=== PATIENT | female | born 1990 | race Caucasian/White ===

== ENCOUNTER 2021-08-03 17:59 | Inpatient (IN) | payer BC ==
[~2021-08-03 17:59] MED LIST: Bupivacaine 0.25% HCL 30 ML VIAL ONE; Bupivacaine HCl 0.5%/Epinephrine 1:200,000/PF 30 ml Vial ONE
[2021-08-03 19:03] VITALS: BMI 31.3
[2021-08-03] MEDS ORDERED: Misoprostol 200 MCG TAB PR PRN (19:20)
[2021-08-03] MEDS ORDERED: Diphenoxylate HCl/Atropine Tablet PO PRN (19:20)
[2021-08-03] MEDS ORDERED: Promethazine HCl 25 MG/ML VIAL IM PRN (19:20)
[2021-08-03] MEDS ORDERED: Carboprost 250 MCG/ML AMP IM PRN (19:20)
[2021-08-03] MEDS ORDERED: Lidocaine 1% (PF) 30 ML VIAL SC PRN (19:20)
[2021-08-03] MEDS ORDERED: Ibuprofen 800 MG TAB PO PRN (19:20)
[2021-08-03] MEDS ORDERED: HYDROcodone/Acetaminophen 5/325 mg Tablet PO PRN ×2 (19:20)
[2021-08-03] MEDS ORDERED: Acetaminophen 500 MG TAB PO PRN (19:20)
[2021-08-03] MEDS ORDERED: Ondansetron PF 4 MG/2 ML Vial IVP PRN (19:20)
[2021-08-03] MEDS ORDERED: hydrALAZINE 20 MG/ML VIAL SLOW IVP PRN (19:20)
[2021-08-03] MEDS ORDERED: Methylergonovine 0.2 MG/ML VIAL IM PRN (19:20)
[2021-08-03] MEDS ORDERED: Lactated Ringer's 1,000 ML IV SCH (19:30)
[2021-08-03] MEDS ORDERED: NS w/ Oxytocin 30 units 500 ML IV SCH ×2 (19:30)
[2021-08-03 19:48] LABS: Hemoglobin 10.8 g/dL (12.0-15.5); Mean Corpuscular HGB CONC 32.7 g/dL (32.0-36.0); Mean Corpuscular Hemoglobin 29.2 pg (27.0-33.0); Mean Corpuscular Volume 89.2 fl (81.6-98.3); Mean Platelet Volume 10.7 fl (7.4-10.4); Platelet Count 170 10x3/uL (150-450); RBC Distribution Width 14.3 % (11.5-14.5); White Blood Cell (WBC) Count 9.6 10x3/uL (3.5-10.5)
[2021-08-03 20:19] LABS: Hep B Surf Ag Non-Reactive S/CO (NonReactive)
[2021-08-03 20:20] LABS: Syphilis Antibody Nonreactive (Nonreactive); Syphilis Antibody Index 0.04 S/CO (<1.00 Non-Reactive)
[2021-08-03 20:22] LABS: HBSAg Index 0.15 S/CO (0-0.99)
[2021-08-03] MEDS: Butorphanol Tartrate 1 MG/ML VIAL SLOW IVP PRN (22:00)
[2021-08-03 23:25] LABS: SARS-CoV-2 NAA Rapid Test Not Detected (NotDetected)
[2021-08-04] MEDS: Butorphanol Tartrate 1 MG/ML VIAL SLOW IVP PRN (02:01)
[2021-08-04] MEDS ORDERED: Fentanyl 2 mcg/Bup 0.1% Cadd 100 ML ONE (13:07)
[2021-08-04] MEDS ORDERED: Acetaminophen 325 MG TAB PO PRN (14:56)
[2021-08-04] MEDS ORDERED: Ondansetron PF 4 MG/2 ML Vial IVP PRN (14:56)
[2021-08-04] MEDS ORDERED: ePHEDrine Sulfate 50 MG/10 ML VIAL SLOW IVP PRN (14:56)
[2021-08-04] MEDS ORDERED: diphenhydrAMINE 50 MG/ML VIAL IVP PRN (14:56)
[2021-08-04] MEDS ORDERED: Naloxone HCl 0.4 mg/ml Vial IVP PRN ×2 (14:56)
[2021-08-04] MEDS ORDERED: Lactated Ringer's 500 ML IV PRN (14:56)
[2021-08-04] MEDS ORDERED: Moisturizing Cream (Eucerin) 113 GM JAR TOP PRN (14:56)
[2021-08-04] MEDS ORDERED: Promethazine HCl 25 MG/ML VIAL IM PRN (14:56)
[2021-08-04] MEDS ORDERED: Communication Order-Pharmacy FS SCH (15:00)
[2021-08-04] MEDS ORDERED: Fentanyl 2 mcg/Bupivacaine 0.1% Cassette 100 ML EPIDURAL SCH (15:00)
[2021-08-04] MEDS ORDERED: Calcium Carbonate 500 MG ChewTAB PO SCH (22:15)
[2021-08-05] MEDS ORDERED: CEFAZOLIN 2 GM VIAL ONE (01:19)
[2021-08-05] MEDS ORDERED: Azithromycin 500 MG VIAL ONE (01:20)
[2021-08-05] MEDS ORDERED: Morphine PF 10 MG/10 ML VIAL ONE (01:44)
[2021-08-05] MEDS ORDERED: Oxytocin 10 UNITS/ML VIAL ONE ×2 (01:44→02:14)
[2021-08-05] MEDS ORDERED: Fentanyl 100 MCG/2 ML VIAL ONE (01:44)
[2021-08-05] MEDS ORDERED: Ketorolac Tromethamine 30 MG/ML VIAL ONE (02:01)
[2021-08-05] MEDS ORDERED: Ondansetron PF 4 MG/2 ML Vial ONE (02:03)
[2021-08-05] MEDS ORDERED: Dexamethasone 4 mg/ml Vial ONE (02:03)
[2021-08-05] MEDS ORDERED: PHENYLEPHRINE-NS 100 MCG/ML 10 ML SYRINGE ONE (02:14)
[2021-08-05] MEDS ORDERED: Ondansetron HCl/PF 4 MG/2 ML Vial IVP PRN (02:17)
[2021-08-05] MEDS ORDERED: Meperidine HCl/PF 25 MG/ML VIAL SLOW IVP PRN (02:17)
[2021-08-05] MEDS ORDERED: Ondansetron PF 4 MG/2 ML Vial IVP PRN ×2 (02:17→06:03)
[2021-08-05] MEDS ORDERED: Naloxone HCl 0.4 mg/ml Vial IV PRN (02:17)
[2021-08-05] MEDS ORDERED: Naloxone HCl 0.4 mg/ml Vial IVP PRN ×2 (02:17)
[2021-08-05] MEDS ORDERED: diphenhydrAMINE 50 MG/ML VIAL IVP PRN (02:17)
[2021-08-05] MEDS ORDERED: Ketorolac Tromethamine 30 MG/ML VIAL IVP PRN (02:17)
[2021-08-05] MEDS ORDERED: Promethazine HCl 25 MG/ML VIAL IM PRN (02:17)
[2021-08-05] MEDS ORDERED: Fentanyl 100 MCG/2 ML VIAL SLOW IVP PRN (02:17)
[2021-08-05] MEDS ORDERED: Moisturizing Cream (Eucerin) 113 GM JAR TOP PRN (02:17)
[2021-08-05] MEDS ORDERED: Promethazine HCl 25 MG SUPP PR PRN (02:17)
[2021-08-05] MEDS ORDERED: Communication Order-Pharmacy FS SCH (02:30)
[2021-08-05] MEDS ORDERED: Ketorolac Tromethamine 30 MG/ML VIAL IVP SCH (02:30)
[2021-08-05] MEDS ORDERED: Promethazine HCl 25 MG/ML VIAL ONE (02:45)
[2021-08-05] MEDS ORDERED: Methylergonovine 0.2 MG/ML VIAL ONE (02:45)
[2021-08-05] MEDS ORDERED: Lanolin Ointment 7 GM TUBE TOP PRN (06:03)
[2021-08-05] MEDS ORDERED: Boostrix 0.5 ML (Tdap) VIAL IM ONE (06:03)
[2021-08-05] MEDS ORDERED: hydrALAZINE 20 MG/ML VIAL SLOW IVP PRN (06:03)
[2021-08-05] MEDS ORDERED: diphenhydrAMINE 25 MG CAP PO PRN (06:03)
[2021-08-05] MEDS ORDERED: Acetaminophen 325 MG TAB PO PRN (06:03)
[2021-08-05] MEDS: HYDROcodone/Acetaminophen 5/325 mg Tablet PO PRN (20:16)
[2021-08-06] MEDS: Ibuprofen 800 MG TAB PO SCH ×3 (01:32→17:42)
[2021-08-06] MEDS: HYDROcodone/Acetaminophen 5/325 mg Tablet PO PRN ×3 (01:32→19:11)
[2021-08-06 04:46] LABS: Hemoglobin 7.8 g/dL (12.0-15.5); Mean Corpuscular HGB CONC 32.8 g/dL (32.0-36.0); Mean Corpuscular Hemoglobin 29.3 pg (27.0-33.0); Mean Corpuscular Volume 89.5 fl (81.6-98.3); Mean Platelet Volume 10.4 fl (7.4-10.4); Platelet Count 142 10x3/uL (150-450); RBC Distribution Width 15.1 % (11.5-14.5); Red Blood Cell (RBC) Count 2.66 10x6/uL (3.90-5.03); White Blood Cell (WBC) Count 8.8 10x3/uL (3.5-10.5)
[2021-08-06] MEDS: Docusate 100 MG CAP PO SCH ×4 (05:54→19:47)
[2021-08-06] MEDS: Prenatal Vitamin 1 TAB PO SCH ×2 (07:17→09:46)
[2021-08-06] MEDS: Polyethylene Glycol 3350 17 GM Packet PO SCH (09:46)
[2021-08-06] MEDS: Ferrous Sulfate 325 MG TAB PO PRN (10:48)
[2021-08-06] MEDS ORDERED: Ibuprofen 800 MG TAB PO SCH (14:00)
[2021-08-06] MEDS: Simethicone Chewable 80 MG TAB PO PRN (19:47)
[2021-08-07] MEDS: Simethicone Chewable 80 MG TAB PO PRN ×2 (01:33→09:06)
[2021-08-07] MEDS: HYDROcodone/Acetaminophen 5/325 mg Tablet PO PRN ×2 (01:33→10:09)
[2021-08-07] MEDS: Ibuprofen 800 MG TAB PO SCH ×2 (01:34→09:03)
[2021-08-07] MEDS: Prenatal Vitamin 1 TAB PO SCH (09:03)
[2021-08-07] MEDS: Ferrous Sulfate 325 MG TAB PO PRN (09:03)
[2021-08-07] MEDS: Docusate 100 MG CAP PO SCH (09:04)
[2021-08-07] MEDS: Polyethylene Glycol 3350 17 GM Packet PO SCH (09:07)
[2021-08-07 09:53] VITALS: BP 116/76; TEMP 98.2
== END 2021-08-07 13:50 | disposition home or self-care (01) | DRG 787 ==
LOC: CSHLD/OP 17:59 → CSHLD 18:03 → CSHPP 08-05 05:04
PROVIDERS: ADMIT Obstetrics & Gynecology; ATTEND Obstetrics & Gynecology
PROC: 3E033VJ Introduction of Other Hormone into Peripheral Vein, Percutaneous Approach (ICD-10-PCS; principal; 2021-08-05)
PROC: 10D00Z1 Extraction of Products of Conception, Low, Open Approach (ICD-10-PCS; 2021-08-05)
DX: O42.02 Full-term premature rupture of membranes, onset of labor within 24 hours of rupture (principal); D62 Acute posthemorrhagic anemia; O72.2 Delayed and secondary postpartum hemorrhage; O99.12 Other diseases of the blood and blood-forming organs and certain disorders involving the immune mechanism complicating childbirth; Z20.822 Contact with and (suspected) exposure to COVID-19; Z3A.38 38 weeks gestation of pregnancy; Z37.0 Single live birth; O34.211 Maternal care for low transverse scar from previous cesarean delivery; O62.1 Secondary uterine inertia; O32.8XX0 Maternal care for other malpresentation of fetus, not applicable or unspecified; D73.4 Cyst of spleen; O90.81 Anemia of the puerperium
CPT/HCPCS: 36415; 51702; 85027; 86780; 86850; 86900; 86901; 87340; J0595; J1100; J1885; J2210; J2274; J2405; J2550; J2590; J3010; J7120; S0020; U0002